=== PATIENT | male | born 1960 | race Caucasian/White ===

== ENCOUNTER 2020-04-10 07:07 | Outpatient (CLI) | payer OTHER, SELFPAY ==
--- NOTE | 2020-04-10 07:15 | USCV_ITS ---
Napoleon Chen Age: 59 Gender: M : 1960 Exam Date: 04/10/2020 07:27 Ordering Phys: Bebe Temple MD ([email or web address]) Technologist: Judy Nieto Exam Location: [facility] – [place] Indication: NONRHEUMATIC MITRAL PROLAPSE BP: 110 / 75 HR: 61 Rhythm: Sinus Technical Quality: Adequate MEASUREMENTS (Male / Female) Normal Values 2D ECHO LV Diastolic Diameter PLAX 4.8 cm 4.2 - 5.9 / 3.9 - 5.3 cm LV Systolic Diameter PLAX 3.4 cm LV Chamber Size 3.4 cm IVS Diastolic Thickness 1.3 cm 0.6 - 1.0 / 0.6 - 0.9 cm IVS Systolic Thickness 1.7 cm LVPW Diastolic Thickness 1.1 cm 0.6 - 1.0 / 0.6 - 0.9 cm LVPW Systolic Thickness 1.6 cm RV Chamber Size 3.5 cm LVOT Diameter 2.0 cm LV Ejection Fraction 2D Teich 55.0 % LV Ejection Fraction MOD 2C 72.7 % LV Ejection Fraction 2C AL 73.4 % LA Diameter 3.2 cm LA Width 2.4 cm LA Height 3.0 cm RA Width 4.2 cm RA Height 3.3 cm Aorta at Sinotubular Diameter 3.6 cm M-MODE LV Diastolic Diameter MM 4.9 cm 4.2 - 5.9 / 3.9 - 5.3 cm LV Systolic Diameter MM 3.5 cm LV Ejection Fraction MM Teich 57.0 % IVS Diastolic Thickness MM 1.1 cm 0.6 - 1.0 / 0.6 - 0.9 cm IVS Systolic Thickness MM 1.7 cm LVPW Diastolic Thickness MM 0.9 cm 0.6 - 1.0 / 0.6 - 0.9 cm LVPW Systolic Thickness MM 1.7 cm RV Diastolic Diameter MM 1.1 cm Aortic Annulus Diameter 4.4 cm LA Ao Ratio MM 0.8 MV E Point Septal Separation 0.5 cm DOPPLER AV Peak Velocity 121.0 cm/s LVOT Peak Velocity 84.0 cm/s AV Area Cont Eq vti 2.1 cm squared AV Area Cont Eq pk 2.3 cm squared MV Area PHT 3.3 cm squared Mitral E to A Ratio 1.7 MV E' Velocity 44.0 cm/s Mitral E to MV E' Ratio 8.9 Mitral E to LV E' Lateral Ratio 8.0 Mitral E to LV E' Septal Ratio 10.3 TR Peak Velocity 192.4 cm/s TR Peak Gradient 14.8 mmHg TR Mean Velocity 156.6 cm/s TR Mean Gradient 10.3 mmHg TR Velocity Time Integral 50.9 cm TV Peak E Velocity 68.0 cm/s Right Atrial Pressure 3.0 mmHg Pulmonary Artery Systolic Pressu 17.8 mmHg PV Peak Velocity 59.0 cm/s RV Acceleration Time 0.2 s RV Ejection Time 0.3 s RV AcT/ET 0.5 FINDINGS Left Ventricle Normal left ventricular size, systolic function and wall thickness, with no regional wall motion abnormalities. Left ventricular ejection fraction is estimated at 60 %. Normal diastolic function. Right Ventricle Normal right ventricular size and systolic function. Right ventricular systolic pressure 17.8 mmHg. Right Atrium Normal right atrial size. Left Atrium Mildly increased left atrial size. Mitral Valve Mildly thickened mitral valve. Possibly mild prolapse of both mitral valve leaflets. No mitral valve stenosis. Trace mitral valve regurgitation. Aortic Valve Structurally normal trileaflet aortic valve. No aortic valve stenosis. Trace to mild aortic valve regurgitation. Tricuspid Valve Structurally normal tricuspid valve. Trace tricuspid valve regurgitation. Pulmonic Valve Structurally normal pulmonic valve. No pulmonary valve stenosis. Trace pulmonary valve regurgitation. Pericardium No pericardial effusion. Aorta Normal size aortic root and proximal ascending aorta. CONCLUSIONS 1. Normal left ventricular size, systolic function and wall thickness, with no regional wall motion abnormalities. Left ventricular ejection fraction is estimated at 60 %. Normal diastolic function. 2. Normal right ventricular size and systolic function. 3. Trace to mild aortic valve regurgitation. 4. Mildly thickened mitral valve. Mild prolapse of both mitral valve leaflets. Trace mitral valve regurgitation. 5. Normal pulmonary artery pressure. 6. No siginificant change when compared to old study from 05/04/2018. Bebe Temple MD (Electronically Signed) Final Date: 16 April 2020 19:30 S
== END 2020-04-10 07:08 | disposition home or self-care (01) ==
PROVIDERS: PCP Family Medicine; Visit Provider Internal Medicine Cardiovascular Disease
DX: R07.9 Chest pain, unspecified (principal); I08.3 Combined rheumatic disorders of mitral, aortic and tricuspid valves
CPT/HCPCS: 93306

== ENCOUNTER → 2021-04-16 08:46 | Outpatient (BNVA) | payer OTHER, SELFPAY | PROVIDERS: PCP Family Medicine; Referring Provider Family Medicine; Visit Provider Podiatrist Foot & Ankle Surgery | DX: M79.673 Pain in unspecified foot (principal); M16.0 Bilateral primary osteoarthritis of hip | CPT/HCPCS: 72170 ==

== ENCOUNTER 2021-05-07 08:26 | Outpatient (CLI) | payer OTHER, SELFPAY ==
--- NOTE | 2021-05-07 08:43 | USCV_ITS ---
Napoleon Chen Age: 60 Gender: M : 1960 Exam Date: 05/07/2021 08:47 Ordering Phys: Chiara Martinez MD Technologist: MONICA [place] [facility] [place]: [place]zy Risk Factors: None Previous Vascular Surgery: Right Brachial BP: / Left Brachial BP: / Right Left Velocity (cm/s) Spectral Plaque Velocity (cm/s) Spectral Plaque Syst/Diast Broadening Syst/Diast Broadening 122.40/13.20 Prox CCA 86.50 / 24.00 94.00/ 15.00 Mid CCA 89.40 / 26.90 92.05/ 22.65 None Distal CCA 69.20 / 7.70 64.40/ 21.10 Prox ICA 61.50 / 13.50 74.00/ 28.80 Mid ICA 63.40 / 22.10 83.60/ 31.70 Distal ICA 83.60 / 26.00 83.60 ECA 75.90 0.68 ICA/CCA 0.94 Antegrade Vertebral Antegrade 51.90/ 14.40 cm/s 34.60/ 9.60 cm/s Tri Subclavian Tri 80.70 89.00 CONCLUSIONS Right ICA stenosis <50%. Mild atheromatous plaque right carotid bulb/ICA. Left ICA stenosis <50%. Mild atheromatous plaque left carotid bulb/ICA. Normal antegrade Doppler flow noted in the left vertebral artery. Normal antegrade Doppler flow noted in the right vertebral artery. Dylan Jacob MD (Electronically Signed) Final Date: 07 May 2021 13:10 S
== END 2021-05-07 08:27 | disposition home or self-care (01) ==
LOC: RAD 08:27
PROVIDERS: PCP Family Medicine; Visit Provider Family Medicine
DX: R42 Dizziness and giddiness (principal); I65.23 Occlusion and stenosis of bilateral carotid arteries
CPT/HCPCS: 93880

== ENCOUNTER 2021-12-17 07:18 | Emergency (ER) | payer OTHER, SELFPAY ==
[2021-12-17 07:28] VITALS: BP 156/91; PULSE 64; RESP 18; TEMP 36.6; O2SAT 99; BMI 28.3
[2021-12-17] MEDS: ketorolac 30 mg/mL INJ IVP (07:51)
[2021-12-17 07:52] VITALS: RESP 15; O2SAT 97
[2021-12-17] MEDS: morphine 4 mg/mL SDV 1 mL IVP (07:52)
[2021-12-17] MEDS: dexamethasone 10 mg/mL INJ IVP (07:53)
--- NOTE | 2021-12-17 07:53 | W.ED.BACK ---
HPI - Back Pain/Injury General: Chief Complaint: Back Pain/Injury Stated Complaint: BACK PAIN Time Seen by Provider: 12/17/21 07:24 Source: patient Mode of arrival: EMS History of Present Illness: 61-year-old male presents emergency room complaining of low back pain radiating to his left buttock. Does not radiate down his leg. 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 He went to step over a electrical cord as he was walking had much worse pain yesterday this morning he had severe enough pain he was not able to get out of bed. He is not had any fecal incontinence or urinary retention. MD elicited complaint: back pain Pertinent past history: prior back pain Onset (ago): day(s) Timing: constant Severity: mild Similar Symptoms Previously: Yes Location: lumbar spine Radiation: none Exacerbating factors: none Relieving factors: none Context: turning/twisting and bending Associated symptoms: Deny abdominal pain, arthralgias, chills, change in bowel habits, difficulty walking, dysuria, fatigue, fecal incontinence, fever(s), hematuria, myalgias, nausea, numbness, syncope, tingling/numbness/burning, urinary frequency, urinary urgency, vomiting or weakness Review of Systems Const: Denies: fever(s), chills, fatigue or malaise ENMT: Denies: throat pain, ear or mastoid pain, nasal discharge or nasal congestion Card: Denies: chest pain, palpitations or syncope Resp: Denies: dyspnea, productive cough, non-productive cough or wheezing GI: Denies: abdominal pain, nausea, vomiting, hematemesis, fecal incontinence or change in bowel habits : Denies: flank pain, difficulty urinating, dysuria, urinary frequency, urinary urgency or hematuria Musc: Denies: neck pain or back pain Skin/Breast: Denies: rash or pruritus Neuro: Denies: difficulty walking PFS ED PFSH: Medical History GERD (gastroesophageal reflux disease) LVH (left ventricular hypertrophy) Surgical History History of cholecystectomy Family History Mother Colon polyps Father Alzheimer disease Other Heart disease Social History Smoking and tobacco status: current some day smoker cigars Alcohol intake: current Alcohol intake frequency: few times a week Physical Exam Const: GENERAL APPEARANCE: cooperative and comfortable ORIENTATION/CONSCIOUSNESS: Yes awake, Yes oriented to person, Yes oriented to place and Yes oriented to time HENMT: COMMON NORMALS: normocephalic, atraumatic and hearing grossly normal bilaterally HEAD & SCALP: normocephalic and atraumatic Resp: COMMON NORMALS: normal respiratory effort, No retractions, No use of accessory muscles and clear to auscultation bilaterally AUSCULTATION: clear to auscultation bilaterally Cardio: COMMON NORMALS: regular rate, regular rhythm and No murmurs present (Cardio) RATE: regular rate RHYTHM: regular rhythm GI: COMMON NORMALS: Soft to palpation and No hepatosplenomegaly present AUSCULTATION: Yes normoactive bowel sounds PALPATION: Yes Soft to palpation, No Tenderness to palpation present (GI), No Guarding due to palpation present (GI) and Yes No hepatosplenomegaly present Extremity: COMMON NORMALS: normal to inspection, capillary refill normal, no clubbing, cyanosis or edema, no calf tenderness and no pedal edema Neuro: SENSORIUM/ORIENTATION: Yes oriented to person, Yes oriented to place and Yes oriented to time MOTOR EXAM: 5/5 motor strength present throughout DEEP TENDON REFLEXES: Right patellar reflex intensity grade: 2+ and Left patellar reflex intensity grade: 2+ OTHER: No foot drop extension and toe against resistance 5/5 Skin: COMMON NORMALS: no rashes or lesions noted GENERAL SKIN EXAM: no rashes or lesions noted Course Vital Signs: Vital signs: Vital Signs Temperature 97.8 F 12/17/21 07:28 Pulse Rate 62 12/17/21 09:00 Respiratory Rate 13 12/17/21 09:00 Blood Pressure 156/91 12/17/21 07:28 Pulse Oximetry 96 12/17/21 09:00 Oxygen Delivery Me thod 12/17/21 09:00 MDM - Back Pain/Injury Medical Decision Making Patient was about to be discharged began complaining of severe chest pain. It resolved spontaneously was improved with GI cocktail serial enzymes and EKGs negative this did prolong his ER stay. Discharged home with medications for his back pain follow-up with his primary care doctor at the [place] return if is further problems. Given his response to the GI cocktail suspect this was GI in nature he can follow-up with the chest pain as well with his primary care doctor. Medical Records I reviewed the patient's medical records. Labs I reviewed the patient's lab results. : 12/17/21 09:47 12/17/21 09:47 Radiology Impressions Chest X-Ray 12/17/21 09:18 IMPRESSION: No chest radiographic evidence of acute cardiopulmonary disease. Laboratory Results WBC 9.1 10^3/uL (4.0-10.0) 12/17/21 09:47 RBC 4.96 10^6/uL (4.1-5.3) 12/17/21 09:47 Hgb 15.2 g/dL (11.7-16.6) 12/17/21 09:47 Hct 45.2 % (42.0-52.0) 12/17/21 09:47 MCV 91.1 fl (80-94) 12/17/21 09:47 MCH 30.6 pg (28.0-34.0) 12/17/21 09:47 MCHC 33.6 g/dL (30.0-36.0) 12/17/21 09:47 RDW 11.9 % (12.1-15.1) L 12/17/21 09:47 Plt Count 172 10^3/cmm (130-400) 12/17/21 09:47 MPV 10.5 fL (7.4-10.4) H 12/17/21 09:47 Neut % (Auto) 89.1 % 12/17/21 09:47 Lymph % (Auto) 6.6 % 12/17/21 09:47 Simpson % (Auto) 2.9 % 12/17/21 09:47 Eos % (Auto) 0.8 % 12/17/21 09:47 Baso % (Auto) 0.3 % 12/17/21 09:47 Neut # (Auto) 8.11 10^3/uL (1.8-7.7) H 12/17/21 09:47 Lymph # (Auto) 0.6 10^3/uL (0.8-4.8) L 12/17/21 09:47 Simpson # (Auto) 0.3 10^3/uL (0.2-0.9) 12/17/21 09:47 Eos # (Auto) 0.1 10^3/uL (0.0-0.8) 12/17/21 09:47 Baso # (Auto) 0.0 10^3/uL (0.0-0.1) 12/17/21 09:47 Nucleated RBC % (auto) 0 % 12/17/21 09:47 Nucleated RBCs # 0.0 /100WBC 12/17/21 09:47 Sodium 136 mmol/L (136-145) 12/17/21 09:47 Potassium 4.4 mmol/L (3.5-5.1) 12/17/21 09:47 Chloride 103 mmol/L (98-107) 12/17/21 09:47 Carbon Dioxide 24 mmol/L (22-29) 12/17/21 09:47 Anion Gap 13.4 (5-19) 12/17/21 09:47 BUN 13 mg/dL (8-23) 12/17/21 09:47 Creatinine 1.1 mg/dL (0.7-1.2) 12/17/21 09:47 GFR Calculation 68.1 mL/min (90-130) L 12/17/21 09:47 Glucose 110 mg/dL (65-115) 12/17/21 09:47 Calculated Osmolality 283 mOsm/kg (285-295) L 12/17/21 09:47 Calcium 9.4 mg/dL (8.5-10.5) 12/17/21 09:47 Total Bilirubin 0.9 mg/dL (0.15-1.2) 12/17/21 09:47 AST 18 U/L (0-40) 12/17/21 09:47 ALT 23 U/L (0-41) 12/17/21 09:47 Alkaline Phosphatase 51 U/L (40-130) 12/17/21 09:47 Troponin T Baseline 6 ng/L (0-15) 12/17/21 09:47 Troponin T 120 Minute 6.00 ng/L (0-15) 12/17/21 12:05 Delta Troponin T 0 ABS# (0-10) 12/17/21 12:05 Total Protein 7.1 g/dL (6.6-8.7) 12/17/21 09:47 Albumin 4.1 g/dL (3.5-5.2) 12/17/21 09:47 Globulin 3.0 g/dL (1.3-4.6) 12/17/21 09:47 Discharge Plan Discharge Patient Disposition: Home Clinical Impression: Lumbar radiculopathy, Chest pain Condition: Stable Prescriptions: New hydrocodone-acetaminophen 5-325 mg tablet 1 tab PO Q6H PRN (Reason: pain) Qty: 15 0RF diclofenac sodium 75 mg tablet,delayed release (DR/EC) 75 mg PO Q12H PRN (Reason: pain) Qty: 20 0RF tizanidine 4 mg tablet 4 mg PO Q6H PRN (Reason: muscle spasticity) Qty: 20 0RF Rx Instructions: do not exceed 3 doses per 24 hrs prednisone 20 mg tablet 20 mg PO TID Qty: 15 0RF Rx Instructions: 1 p.o. 3 times daily x3 days, 1 p.o. twice daily x2 days, 1 p.o. daily x2 days No Action zinc acetate PO ascorbic acid (vitamin C) PO (DME) Custom molded orthotics with 3 cm heel lift to right See Rx Instructions .Route .MEDSUPPLY Qty: 1 0RF Rx Instructions: As directed by [facility] pantoprazole [Protonix] 40 mg tablet,delayed release (DR/EC) 40 mg PO DAILY fluticasone propionate 100 mcg/actuation blister with device 1 inh INHALATION BID garlic 1,000 mg capsule 1,000 mg PO DAILY aspirin 81 mg tablet,delayed release (DR/EC) 81 mg PO DAILY saw palmetto 160 mg capsule 160 mg PO BID red yeast rice 600 mg capsule 600 mg PO DAILY cholecalciferol (vitamin D3) 4,000 unit capsule 4,000 unit PO DAILY Discharge Orders: Discharge ED (Routine); Ordered 12/17/21 Ordered By: Torito Pineda Referrals: Chiara Martinez MD [Primary Care Provider] - Discharge Activity: Resume usual activity Activity Restrictions/Additional Instructions: Follow-up with your primary care doctor within the next few days to further evaluate your back pain including possibly advanced imaging. Coding Level of Care Code ED Manager Of Planning for Chg Fwd Exam Comprehensive
[2021-12-17] MEDS: orphenadrine 30 mg/mL Inj 2 mL 60 MG IVP (07:54)
[2021-12-17 09:00] VITALS: PULSE 62; RESP 13; O2SAT 96
--- NOTE | 2021-12-17 09:18 | XRR_ITS ---
PROCEDURE INFORMATION: Exam: XR Chest Exam date and time: 12/17/2021 9:32 AM Age: 61 years old Clinical indication: Cough and dyspnea; Additional info: Dyspnea/cough TECHNIQUE: Imaging protocol: Radiologic exam of the chest. Views: 1 view. COMPARISON: No relevant prior studies available. FINDINGS: Lungs: There are normal lung volumes without interstitial or airspace opacities. Pleural spaces: There are no pleural effusions or pneumothorax. Heart/Mediastinum: The heart size is normal. The mediastinal contour is normal. The trachea is in the midline. Bones/joints: No acute abnormalities. XR/XR chest 1V portable [id number] IMPRESSION: No chest radiographic evidence of acute cardiopulmonary disease.
--- NOTE | 2021-12-17 09:18 | ECG_ITS ---
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 Measurements Intervals Mason Rate: 60 P: 49 MT: 256 QRS: 1 QRSD: 110 T: 32 QT: 396 QTc: 399 Interpretive Statements SINUS RHYTHM WITH FIRST DEGREE AV BLOCK INCOMPLETE RIGHT BUNDLE BRANCH BLOCK [90+ ms QRS DURATION, TERMINAL R IN V1/V2, 40+ ms S IN I/aVL/V4/V5/V6] No previous ECG available for comparison Electronically Signed On 12-17-2021 21:20:37 CDT by Jeannine Bueno M.D. [email or web address] Ltdtallahatchie general [email or web address]/store/[id number] f
[2021-12-17] MEDS: aspirin 81 mg Chew Tablet 324 MG PO (09:42)
[2021-12-17 09:54] LABS: Basophils % 0.3 %; Eosinophils # 0.1 10^3/uL (0.0-0.8); Eosinophils % 0.8 %; Hematocrit 45.2 % (42.0-52.0); Hemoglobin 15.2 g/dL (11.7-16.6); Lymphocytes # 0.6 10^3/uL (0.8-4.8); Lymphocytes % 6.6 %; Mean Corpuscular HGB Conc 33.6 g/dL (30.0-36.0); Mean Corpuscular Hemoglobin 30.6 pg (28.0-34.0); Mean Corpuscular Volume 91.1 fl (80-94); Mean Platelet Volume 10.5 fL (7.4-10.4); Monocytes # 0.3 10^3/uL (0.2-0.9); Monocytes % 2.9 %; Neutrophils # 8.11 10^3/uL (1.8-7.7); Neutrophils % 89.1 %; Nucleated Red Blood Cells % 0 %; Platelet Count 172 10^3/cmm (130-400); Red Blood Count 4.96 10^6/uL (4.1-5.3); Red Cell Distribution Width 11.9 % (12.1-15.1); White Blood Count 9.1 10^3/uL (4.0-10.0)
[2021-12-17] MEDS: lidocaine 2% viscous 15 ML, aluminum-mag hydrox-simethicon 30 ML, sucralfate oral liq 1 GM PO (09:58)
[2021-12-17 10:11] LABS: Alanine Aminotransferase 23 U/L (0-41); Albumin Level 4.1 g/dL (3.5-5.2); Alkaline Phosphatase 51 U/L (40-130); Anion Gap 13.4 (5-19); Aspartate Amino Transferase 18 U/L (0-40); Blood Urea Nitrogen 13 mg/dL (8-23); Calcium 9.4 mg/dL (8.5-10.5); Carbon Dioxide 24 mmol/L (22-29); Chloride 103 mmol/L (98-107); Glomerular Filtration Rate 68.1 mL/min (90-130); Glucose 110 mg/dL (65-115); Osmolality Calculated 283 mOsm/kg (285-295); Potassium 4.4 mmol/L (3.5-5.1); Sodium 136 mmol/L (136-145); Total Bilirubin 0.9 mg/dL (0.15-1.2); Total Protein 7.1 g/dL (6.6-8.7); Troponin(5th) Baseline 6 ng/L (0-15)
--- NOTE | 2021-12-17 11:18 | ECG_ITS ---
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 Measurements Intervals Addison Rate: 63 P: 40 MS: 253 QRS: -7 QRSD: 120 T: 29 QT: 389 QTc: 399 Interpretive Statements SINUS RHYTHM WITH FIRST DEGREE AV BLOCK WITH OCCASIONAL VENTRICULAR PREMATURE COMPLEXES POSSIBLE RIGHT VENTRICULAR CONDUCTION DELAY [RSR (QR) IN V1/V2] Compared to ECG 12/17/2021 09:11:53 Ventricular premature complex(es) now present Incomplete right bundle-branch block no longer present Electronically Signed On 12-17-2021 21:32:32 CDT by Jeannine Bueno M.D. [id number]
[2021-12-17 12:41] LABS: Troponin 5 2HR Delta 0 ABS# (0-10)
== END 2021-12-17 13:40 | disposition home or self-care (01) ==
PROVIDERS: Emergency Provider Family Medicine; PCP Family Medicine
DX: M54.16 Radiculopathy, lumbar region (principal); R07.9 Chest pain, unspecified; Z79.82 Long term (current) use of aspirin; F17.210 Nicotine dependence, cigarettes, uncomplicated
CPT/HCPCS: 36415; 71045; 80053; 84484; 85025; 93005; 96374; 96375; 99285; J1100; J1885; J2270; J2360

== ENCOUNTER → 2022-01-17 15:41 | Outpatient (BNVA) | payer OTHER, SELFPAY | PROVIDERS: PCP Family Medicine; Visit Provider Orthopaedic Surgery | DX: M48.062 Spinal stenosis, lumbar region with neurogenic claudication (principal); M51.27 Other intervertebral disc displacement, lumbosacral region | CPT/HCPCS: 72110; 99204 ==

== ENCOUNTER → 2023-07-28 07:17 | Outpatient (BNVA) | payer OTHER, SELFPAY | PROVIDERS: PCP Emergency Medicine Emergency Medical Services; Visit Provider Podiatrist Foot & Ankle Surgery | DX: L60.3 Nail dystrophy (principal) | CPT/HCPCS: 99213 ==

== ENCOUNTER → 2023-09-01 07:09 | Outpatient (BNVA) | payer OTHER, SELFPAY | PROVIDERS: PCP Emergency Medicine Emergency Medical Services; Visit Provider Podiatrist Foot & Ankle Surgery | DX: L60.3 Nail dystrophy (principal); B35.1 Tinea unguium | CPT/HCPCS: 99213 ==

== ENCOUNTER → 2024-05-17 08:44 | Outpatient (BNVA) | payer OTHER, SELFPAY | PROVIDERS: PCP Emergency Medicine Emergency Medical Services; Visit Provider Podiatrist Foot & Ankle Surgery | DX: M79.671 Pain in right foot (principal); M21.70 Unequal limb length (acquired), unspecified site; M72.2 Plantar fascial fibromatosis | CPT/HCPCS: 73630; 99213 ==